=== PATIENT | male | born 2000 | race Caucasian/White ===

== ENCOUNTER 2018-02-18 21:21 | Emergency (ER) | payer OTHER ==
[2018-02-18 21:38] VITALS: BP 135/78; PULSE 86; TEMP 99.3; BMI 42.0
[2018-02-18] MEDS ORDERED: KETOROLAC TROMETHAMINE 60 MG/2 ML VIAL ONE ×2 (22:58→23:39)
[2018-02-18] MEDS ORDERED: BACITRACIN 15 GM TUBE TOPICAL OINTMENT ONE (22:58)
[2018-02-18] MEDS ORDERED: KETOROLAC TROMETHAMINE 60 MG/2 ML VIAL IM ONE (23:10)
[2018-02-18] MEDS ORDERED: BACITRACIN 15 GM TUBE TOPICAL OINTMENT TP ONE (23:11)
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
[2018-02-18] MEDS ORDERED: BACITRACIN 0.9 GM PACKET ONE (23:40)
[2018-02-19] MEDS ORDERED: ACETAMINOPHEN 500 MG TABLET (FP) PO ONE (00:51)
[2018-02-19] MEDS ORDERED: ACETAMINOPHEN 325 MG TABLET (FP) ONE (01:18)
== END 2018-02-19 01:21 | disposition home or self-care (01) ==
LOC: JERFT 21:21 → JER 21:21
PROC: 3E0233Z Introduction of Anti-inflammatory into Muscle, Percutaneous Approach (ICD-10-PCS; principal; 2018-02-18)
DX: S20.212A Contusion of left front wall of thorax, initial encounter (principal); S20.211A Contusion of right front wall of thorax, initial encounter; S00.33XA Contusion of nose, initial encounter; S81.012A Laceration without foreign body, left knee, initial encounter; S81.011A Laceration without foreign body, right knee, initial encounter; S61.412A Laceration without foreign body of left hand, initial encounter; S61.411A Laceration without foreign body of right hand, initial encounter; Y04.2XXA Assault by strike against or bumped into by another person, initial encounter; Y93.89 Activity, other specified; Y92.89 Other specified places as the place of occurrence of the external cause; Y99.8 Other external cause status
CPT/HCPCS: 70150-TC-FY; 71111-TC-FY; 71250-TC; 96372; 99281-25